=== PATIENT | male | born 1950 | race Caucasian/White ===

== ENCOUNTER 2023-08-16 14:22 | Inpatient (IN) | payer MEDICARE ==
[2023-08-16] MEDS ORDERED: PHENAZOPYRIDINE 200 MG TAB PO STA (15:08)
[2023-08-16] MEDS ORDERED: MORPHINE SULFATE 4 MG/ML SYRINGE IVP STA (15:08)
[2023-08-16 15:19] LABS: Basophils % (A) 0 %; Eosinophils # (A) 0.1 k/uL (0-0.7); Eosinophils % (A) 1 %; HCT 38.4 % (39.0-53.0); HGB 12.8 gm/dL (13.0-17.5); Lymphocytes # (A) 1.5 k/uL (1.0-4.8); Lymphocytes % (A) 11 %; MCH 30.2 pg (25.0-35.0); MCHC 33.4 g/dL (31.0-37.0); MCV 90.3 fL (80.0-100.0); Mean Platelet Volume 7.2; Monocytes # (A) 0.6 k/uL (0-1.0); Monocytes % (A) 4 %; Neutrophils % (A) 82 %; Platelet Count 213 k/uL (150-450); RBC 4.26 m/uL (4.30-5.90); RDW 13.8 % (11.5-15.5); WBC 13.3 k/uL (3.8-10.6)
[2023-08-16 15:28] LABS: ALT 15 U/L (4-49); AST 18 U/L (17-59); African American GFR (CKD) >90 (>60 ml/min/1.73 sqM); Albumin 3.7 g/dL (3.5-5.0); Alkaline Phosphatase 74 U/L (38-126); Anion Gap 8 mmol/L; Blood Urea Nitrogen 16 mg/dL (9-20); Calcium 8.7 mg/dL (8.4-10.2); Carbon Dioxide 28 mmol/L (22-30); Chloride 100 mmol/L (98-107); Glucose 93 mg/dL (74-99); Non-African American GFR(CKD) >90 (>60 ml/min/1.73 sqM); Potassium 4.2 mmol/L (3.5-5.1); Sodium 136 mmol/L (137-145); Total Bilirubin 0.9 mg/dL (0.2-1.3); Total Protein 6.7 g/dL (6.3-8.2)
[2023-08-16] MEDS ORDERED: ACETAMINOPHEN TAB 325 MG TAB PO PRN (16:19)
[2023-08-16] MEDS ORDERED: NALOXONE 0.4 MG/ML 1 ML VIAL IV PRN (16:19)
--- NOTE | 2023-08-16 16:19 | ED ---
Chest Pain HPI - General Chief Complaint: Chest Pain Stated Complaint: UTI, Chest Pain Time Seen by Provider: 08/16/23 14:40 Source: patient, EMS Mode of arrival: EMS Limitations: no limitations - History of Present Illness Initial Comments: 73-year-old man was into the emergency department as a transfer from [facility]. Patient went into their facility for chest pain which started last night. He describes it as a pressure sensation located over the left chest wall which radiates into the left arm and left jaw. He was also complaining of a fever and difficulty urinating. At [facility] he was found to have a negative troponin. His pain was improved with the nitro. He was found have a urinary tract infection was given Rocephin. Transferred to our facility for further cardiac workup. Patient continues to have left-sided chest wall pain which she grades as a 5 out of 10. Currently the patient has Nitropaste on. He denies any previous cardiac history but does have a large family history of cardiac issues. Denies history of previous urinary tract infections. No other alleviating, precipitating or modifying factors - Related Data Home Medications Medication Instructions Recorded Confirmed Desvenlafaxine Succinate 25 mg PO HS 08/16/23 08/16/23 [Desvenlafaxine Succinate ER] traZODone HCL [Desyrel] 200 mg PO HS PRN 08/16/23 08/16/23 Allergies Allergy/AdvReac Type Severity Reaction Status Date / Time No Known Allergies Allergy Verified 08/16/23 16:03 Review of Systems ROS Statement: Those systems with pertinent positive or pertinent negative responses have been documented in the HPI. ROS Other: All systems not noted in ROS Statement are negative. Past Medical History Past Medical History: No Reported History History of Any Multi-Drug Resistant Organisms: None Reported Past Surgical History: No Surgical Hx Reported Smoking Status: Never smoker Past Alcohol Use History: Occasional, Rare Past Drug Use History: None Reported General Exam Limitations: no limitations General appearance: alert, in no apparent distress Head exam: Present: atraumatic, normocephalic, normal inspection Eye exam: Present: normal appearance, PERRL, EOMI. Absent: scleral icterus, conjunctival injection, periorbital swelling ENT exam: Present: normal exam, mucous membranes moist Neck exam: Present: normal inspection. Absent: tenderness, meningismus, lymphadenopathy Respiratory exam: Present: normal lung sounds bilaterally. Absent: respiratory distress, wheezes, rales, rhonchi, stridor Cardiovascular Exam: Present: regular rate, normal rhythm, normal heart sounds. Absent: systolic murmur, diastolic murmur, rubs, gallop, clicks GI/Abdominal exam: Present: soft, normal bowel sounds. Absent: distended, tenderness, guarding, rebound, rigid Extremities exam: Present: normal inspection, full ROM, normal capillary refill. Absent: tenderness, pedal edema, joint swelling, calf tenderness Back exam: Present: normal inspection Neurological exam: Present: alert, oriented X3, CN II-XII intact Psychiatric exam: Present: normal affect, normal mood Skin exam: Present: warm, dry, intact, normal color. Absent: rash Course Vital Signs 08/16/23 08/16/23 14:32 16:05 Temperature 98 F Pulse Rate 65 65 Respiratory 18 18 Rate Blood Pressure 123/77 130/69 O2 Sat by Pulse 100 99 Oximetry Chest Pain MDM - MDM Was pt. sent in by a medical professional or institution (EAN Vargas, MAGNETOMETER OPERATOR, urgent care, hospital, or alf...) When possible be specific @ -Patient was sent in from [facility] Did you speak to anyone other than the patient for history (EMS, parent, family, police, friend...)? What history was obtained from this source @ -Spoke with transferring physician at outside hospital Did you review nursing and triage notes (agree or disagree)? Why? @ -I reviewed and agree with nursing and triage notes Were old charts reviewed (outside hosp., previous admission, EMS record, old EKG, old radiological studies, urgent care reports/EKG's, alf records)? Report findings @ -No old charts were reviewed Differential Diagnosis (chest pain, altered mental status, abdominal pain women, abdominal pain men, vaginal bleeding, weakness, fever, dyspnea, syncope, headache, dizziness, GI bleed, back pain, seizure, CVA, palpatations, mental health, musculoskeletal)? @ -Differential Fever: Pneumonia, viral URI, endocarditis, myocarditis, pericarditis, otitis, sinusitis, peritonsillar Abscess, retropharyngeal Abscess, epiglottitis, peritonitis, appendicitis, Nicole cystitis, diverticulitis, hepatitis, colitis, UTI, PID, TOA, pyelonephritis, prostatitis, epididymitis, meningitis, encephalitis, pulmonary embolism, CVA, thyroid storm, pancreatitis, adrenal crisis, cavernous sinus thrombosis, this is not meant to be an all-inclusive list. Differential Chest Pain: Stable Angina, Unstable Angina, STEMI, NSTEMI Aortic Dissection, Pneumothorax, Musculoskeletal, Esophageal Spasm GERD, Cholecystitis, Pancreatitis, Zoster, this is not meant to be an all-inclusive list. EKG interpreted by me (3pts min.). @ -Yes and demonstrates sinus rhythm with a rate of 66. WV interval 220. QRS 104. QTC 399. No acute ST segment elevations or depressions X-rays interpreted by me (1pt min.). @ -None done CT interpreted by me (1pt min.). @ -None done U/S interpreted by me (1pt. min.). @ -None done What testing was considered but not performed or refused? (CT, X-rays, U/S, labs)? Why? @ -None What meds were considered but not given or refused? Why? @ -None Did you discuss the management of the patient with other professionals (professionals i.e. , PA, MAGNETOMETER OPERATOR, lab, RT, psych nurse, director social service, ac/dc rewinder, teacher, youth liaison officer, case fitter)? Give summary @ -Spoke with Dr. Sanon for admission Was smoking cessation discussed for >3mins.? @ -No Was critical care preformed (if so, how long)? @ -No Were there social determinants of health that impacted care today? How? (Homelessness, low income, unemployed, alcoholism, drug addiction, transportation, low edu. Level, literacy, decrease access to med. care, retirement, rehab)? @ -No Was there de-escalation of care discussed even if they declined (Discuss DNR or withdrawal of care, Hospice)? DNR status @ -No What co-morbidities impacted this encounter? (DM, HTN, Smoking, COPD, CAD, Cancer, CVA, ARF, Chemo, Hep., AIDS, mental health diagnosis, sleep apnea, morbid obesity)? @ -None Was patient admitted / discharged? Hospital course, mention meds given and route, prescriptions, significant lab abnormalities, going to OR and other pertinent info. @ -Upon arrival patient was placed into room 25. I did review records from outside hospital. I repeated laboratory studies. Patient was given Pyridium. Spoke with Dr. Sanon who will admit patient Undiagnosed new problem with uncertain prognosis? @ -No Drug Therapy requiring intensive monitoring for toxicity (Heparin, Nitro, Insulin, Cardizem)? @ -No Were any procedures done? @ -No Diagnosis/symptom? @ -Acute pyrexia, acute UTI, acute chest pain Acute, or Chronic, or Acute on Chronic? @ -Acute Uncomplicated (without systemic symptoms) or Complicated (systemic symptoms)? @ -Complicated Side effects of treatment? @ -No Exacerbation, Progression, or Severe Exacerbation? @ -No Poses a threat to life or bodily function? How? (Chest pain, [place], [place], pneumonia, PE, COPD, DKA, ARF, appy, cholecystitis, CVA, Diverticulitis, Homicidal, Suicidal, threat to staff... and all critical care pts) @ -No Disposition Clinical Impression: Fever, Chest pain, UTI (urinary tract infection) Disposition: [facility]ITT[facility] Condition: Stable Is patient prescribed a controlled substance at d/c from ED?: No Time of Disposition: 16:18 Decision to Admit Reason: Admit from EC Decision Date: 08/16/23 Decision Time: 16:18
[2023-08-16] MEDS ORDERED: SODIUM CHLORIDE 0.9% 1,000 ML IV SCH (16:30)
[2023-08-16] MEDS ORDERED: traZODone HCL 100 MG TAB PO PRN (21:10)
[2023-08-16] MEDS ORDERED: LACTULOSE 20 GM/30 ML CUP PO PRN (21:10)
[2023-08-16] MEDS ORDERED: ALPRAZolam 0.25 MG TAB PO PRN (21:10)
[2023-08-16] MEDS ORDERED: MELATONIN 3 MG TABLET PO PRN (21:10)
[2023-08-16] MEDS ORDERED: ONDANSETRON 4 MG/2 ML VIAL IVP PRN (21:10)
[2023-08-16] MEDS ORDERED: CALCIUM CARBONATE 500 MG CHEWABLE PO PRN (21:10)
[2023-08-16] MEDS: DESVENLAFAXINE SUCCINATE 25 MG PO SCH (21:19)
[2023-08-16] MEDS: ENOXAPARIN 40 MG/0.4 ML SYRINGE SQ SCH (21:19)
--- NOTE | 2023-08-16 21:39 | P.HPIM ---
History of Present Illness H&P Date: 08/16/23 Chief Complaint: Fever This is a pleasant 73-year-old patient follows Dr. Catrachito Briceño. Otherwise, in good health. Patient was transferred here from [facility]. Patient started over the 103 at home. Developed burning dysuria and discomfort in the the pelvis. Patient does has to push to make urine to was the end of the urination. This is at baseline. He has been told he has a large prostate. He does also developed chest pain going across the chest. Going to the back and left shoulder. Also had some shortness of breath difficulty catching his breath. No perspiration. Urine came back and infected appearing. Started on antibiotics. Transferred down for further workup because of chest pain. Denies any prior cardiac history. Also felt dizzy. Review of systems: GEN.: Fevers EYES: None HEENT: None NECK: None RESPIRATORY: Some shortness of breath CARDIOVASCULAR: As above GASTROINTESTINAL: None GENITOURINARY: As above MUSCULOSKELETAL: None LYMPHATICS: None HEMATOLOGICAL: None PSYCHIATRY: None NEUROLOGICAL: Some trouble sleeping Past medical history to include: Insomnia, anxiety, BPH Social history: Patient is a repairer maintenance building. . No smoking or alcohol. Physical examination: VITAL SIGNS: T-max 103 at home, 65, 18, 123 with 77, 100% room air] GENERAL: BMI 25.8, laying in bed awake tired. EYES: Pupils equal. Conjunctiva normal. HEENT: External appearance of nose and ears normal, oral cavity grossly normal. NECK: JVD not raised; masses not palpable. HEART: First and second heart sounds are normal; no edema. LUNGS: Respiratory rate normal; clear to auscultation. ABDOMEN: Soft, nontender, liver spleen not palpable, no masses palpable. PSYCH: Alert and oriented x3; mood and affect normal. MUSCULOSKELETAL:No Clubbing/cyanosis;muscles-grossly intact NEUROLOGICAL: Cranial nerves grossly intact; no facial asymmetry, power and sensation grossly intact. LYMPHATICS: No lymph nodes palpable in the axilla and neck INVESTIGATIONS, reviewed in the clinical context: August 16: White count 13.3 hemoglobin 12.8 platelets 213 left shift sodium 136 potassium 4.2 BUN 16 creatinine 0.76 Troponin I less than 0.012 EKG tracing personally reviewed by me-normal sinus rhythm From [facility]: White count 14.4 left shift procalcitonin 0.11 UA: Nitrate positive, leukoesterase positive, WBC 30-50, bacteria 2+ Assessment and plan: -Acute UTI with cystitis causing sepsis. Patient speak to fever 103 at home. IV ceftriaxone 1 g every 12 Urine culture. Blood culture. -Sepsis secondary to acute UTI with cystitis IV ceftriaxone. IV fluids. -BPH Flomax 0.4 mg daily at bedtime -Anterior chest wall pain with radiation to the back in the left arm. Troponin negative. Telemetry. Consult cardiology- -Anxiety desvenlafaxine -Chronic insomnia Trazodone when necessary -Full code Care was discussed the patient. Questions answered. Given the complexity and severity of patient's condition expect the patient to be in the hospital at least for 2 overnights Past Medical History Past Medical History: No Reported History History of Any Multi-Drug Resistant Organisms: None Reported Past Surgical History: No Surgical Hx Reported Smoking Status: Never smoker Past Alcohol Use History: Occasional, Rare Past Drug Use History: None Reported Medications and Allergies Home Medications Medication Instructions Recorded Confirmed Type Desvenlafaxine Succinate 25 mg PO HS 08/16/23 08/16/23 History [Desvenlafaxine Succinate ER] traZODone HCL [Desyrel] 200 mg PO HS PRN 08/16/23 08/16/23 History Allergies Allergy/AdvReac Type Severity Reaction Status Date / Time No Known Allergies Allergy Verified 08/16/23 16:03 Physical Exam Vitals: Vital Signs Temp Pulse Pulse Resp BP BP Pulse Ox 08/16/23 20:00 98.3 F 79 16 109/54 96 08/16/23 17:15 98.0 F 76 16 143/73 97 08/16/23 16:05 65 18 130/69 99 08/16/23 14:32 98 F 65 18 123/77 100 Intake and Output 08/16/23 08/16/23 08/16/23 06:59 14:59 22:59 Intake Total 118 Balance 118 Intake: Oral 118 Other: Weight 79.379 kg 79.379 kg Results CBC & Chem 7: 08/16/23 15:10 08/16/23 15:10 Labs: Abnormal Lab Results - Last 24 Hours (Table) 08/16/23 08/16/23 Range/Units 15:10 15:10 WBC 13.3 H (3.8-10.6) k/uL RBC 4.26 L (4.30-5.90) m/uL Hgb 12.8 L (13.0-17.5) gm/dL Hct 38.4 L (39.0-53.0) % Neutrophils # 11.0 H (1.3-7.7) k/uL Sodium 136 L (137-145) mmol/L Thrombosis Risk Factor Assmnt - Choose All That Apply Any of the Below Risk Factors Present?: No Each Risk Factor Represents 2 Points: Age 61-74 years Thrombosis Risk Factor Assessment Total Risk Factor Score: 2 Thrombosis Risk Factor Assessment Level: Low Risk
[2023-08-16] MEDS: SODIUM CHLORIDE 0.9% 1,000 ML IV SCH (22:57)
[2023-08-16] MEDS: TAMSULOSIN 0.4 MG CAP.ER.24H PO SCH (22:58)
[2023-08-16 23:23] LABS: Amorphous Sediment,Urine Rare /hpf; Appearance,Urine Clear (Clear); Bacteria,Urine Rare /hpf; Bilirubin,Urine 1+ (Negative); Blood,Urine Negative (Negative); Color,Urine Dark Yellow; Glucose,Urine (UA) Negative (Negative); Ketones,Urine Negative (Negative); Leukocyte Esterase,Urine Trace (Negative); Mucus,Urine Rare /hpf; Nitrite,Urine Positive (Negative); Protein,Urine Negative (Negative); RBC,Urine 3 /hpf (0-5); Specific Gravity,Urine 1.018 (1.001-1.035); WBC,Urine 9 /hpf (0-5)
[2023-08-17 07:28] LABS: ALT 14 U/L (4-49); AST 18 U/L (17-59); African American GFR (CKD) >90 (>60 ml/min/1.73 sqM); Albumin 3.4 g/dL (3.5-5.0); Albumin/Globulin Ratio 1.2; Alkaline Phosphatase 76 U/L (38-126); Anion Gap 10 mmol/L; Blood Urea Nitrogen 15 mg/dL (9-20); Calcium 8.6 mg/dL (8.4-10.2); Carbon Dioxide 23 mmol/L (22-30); Chloride 102 mmol/L (98-107); Globulin 2.8 g/dL; Glucose 105 mg/dL (74-99); Non-African American GFR(CKD) 90 (>60 ml/min/1.73 sqM); Potassium 4.3 mmol/L (3.5-5.1); Sodium 135 mmol/L (137-145); Total Bilirubin 0.7 mg/dL (0.2-1.3); Total Protein 6.2 g/dL (6.3-8.2)
--- NOTE | 2023-08-17 08:10 | CA ---
Transthoracic Echo Report Name: Max Ansari Age: 73 Gender: M : 1950 Exam Date: 08/17/2023 07:19 Exam Location: [place] [facility] Ht (in): 69 Wt (lb): 175 Ordering Physician: Elgin Sanon MD Attending/Referring Phys: Commercial Sales Director Clarissa Silva [facility] Procedure CPT: Indications: Chest Pain Cardiac Hx: Technical Quality: Fair Contrast 1: Total Dose (mL): Contrast 2: Total Dose (mL): MEASUREMENTS (Male / Female) Normal Values 2D ECHO LV Diastolic Diameter PLAX 5.2 cm 4.2 - 5.9 / 3.9 - 5.3 cm LV Systolic Diameter PLAX 3.3 cm IVS Diastolic Thickness 0.9 cm 0.6 - 1.0 / 0.6 - 0.9 cm LVPW Diastolic Thickness 1.0 cm 0.6 - 1.0 / 0.6 - 0.9 cm LV Relative Wall Thickness 0.4 LVOT Diameter 2.0 cm Ascending Aorta Diameter 3.3 cm M-MODE Aortic Root Diameter MM 2.6 cm LA Systolic Diameter MM 3.0 cm LA Ao Ratio MM 1.2 AV Cusp Separation MM 2.2 cm DOPPLER AV Peak Velocity 146.2 cm/s AV Peak Gradient 8.5 mmHg AV Mean Velocity 85.9 cm/s AV Mean Gradient 3.6 mmHg AV Velocity Time Integral 26.2 cm LVOT Peak Velocity 109.2 cm/s LVOT Peak Gradient 4.8 mmHg LVOT Velocity Time Integral 23.5 cm LVOT Stroke Volume 72.4 cm??? LVOT Stroke Volume Index 37.1 ml/m??? LVOT Cardiac Index 2527.1 cm???/min???m??? AV Area Cont Eq vti 2.8 cm??? AV Area Cont Eq pk 2.3 cm??? Mitral E Point Velocity 78.5 cm/s Mitral A Point Velocity 85.9 cm/s Mitral E to A Ratio 0.9 MV Deceleration Time 192.3 ms LV E' Lateral Velocity 11.9 cm/s Mitral E to LV E' Lateral Ratio 6.6 LV E' Septal Velocity 8.1 cm/s Mitral E to LV E' Septal Ratio 9.7 TR Peak Velocity 169.3 cm/s TR Peak Gradient 11.5 mmHg Right Atrial Pressure 3.0 mmHg Pulmonary Artery Systolic Pressu 14.5 mmHg Right Ventricular Systolic Press 14.5 mmHg FINDINGS Left Ventricle Left ventricular wall thickness normal. Left ventricular cavity size normal. Low normal left ventricular systolic function with no obvious regional wall motion abnormalities. Left ventricular ejection fraction is estimated at 50- 55%. Right Ventricle Right ventricle at upper limits of normal. Right Atrium Upper normal right atrial size. Left Atrium Mild left atrial dilatation. Mitral Valve Structurally normal mitral valve. Trace to mild mitral regurgitation. Aortic Valve Trileaflet aortic valve. Thickening of the aortic valve cusps. No aortic valve stenosis or regurgitation. Tricuspid Valve Structurally normal tricuspid valve. Trace tricuspid regurgitation. Pulmonic Valve Pulmonic valve not well visualized. Pericardium No pericardial effusion. Aorta Normal size aortic root and proximal ascending aorta. CONCLUSIONS Normal LV size and systolic function. Ejection fractions in the 50-55% range. Left atrium is enlarged. Mild mitral and tricuspid regurgitation no pulmonary hypertension. No pericardial effusion Previewed by: Dr. Johnathan Marina MD (Electronically Signed) Final Date: 17 August 2023 08:09
--- NOTE | 2023-08-17 08:23 | XR ---
EXAMINATION TYPE: XR chest 2V DATE OF EXAM: 08/17/2023 6:52 AM COMPARISON: Chest radiographs from 08/16/2023 TECHNIQUE: XR chest 2V Frontal and lateral views of the chest. CLINICAL INDICATION:Male, 73 years old with history of Chest pain, short of breath; FINDINGS: Lungs/Pleura: There is flattening of the diaphragm with increased lucency of the lungs. No evidence o f pneumothorax, pleural effusion or focal consolidation. Chronic senescent parenchyma change. Pulmonary vascularity: Unremarkable. Heart/mediastinum: Cardiomediastinal silhouette is unremarkable. Musculoskeletal: No acute osseous pathology. IMPRESSION: 1. No acute cardiopulmonary disease process. 2. COPD changes.
--- NOTE | 2023-08-17 10:10 | P.CRDCN ---
History of Present Illness Consult date: 08/17/23 History of present illness: History of present illness: This is a 73-year-old male with no previous cardiac history and does not follow with a ethnic studies professor. He has no significant past medical history. We have been asked to evaluate the patient for chest pain. Patient initially presented to [facility]. Patient states that on Wednesday around 2 in the afternoon he developed severe pain with urination, no blood. He still states he has some burning with urination and pain but not as bad. By 8 PM he still was at rest and he developed pain on the left side of his chest that went around to his back and into the scapular area. He described it as knife and sharp. He now states it is a pressure type pain. He also had some shortness of breath. He states he has more pain with deep breathing and has been shallow breathing. At [facility] patient was started on Rocephin for urinary tract infection. His temperature was up to 103. Patient was complaining of dizziness this morning and nurses obtained orthostatics which were negative. At this time, patient does complain of some pressure in the left side of his chest and some left arm numbness. He has family history of a brother with ID at age 76 in father at age 84. EKG sinus rhythm at rate of 66, no ST changes Chest x-ray: Troponin negative 3, WBC 13.3, hemoglobin 12.8, platelet count 213. Sodium 135 otherwise electrolytes and renal function are normal. Blood sugar 105. Liver function tests are normal. Urinalysis done at our hospital not impressive for UTI. Home cardiac medications: None Review Of Systems: At the time of my evaluation: Constitutional: + fever, + chills. No weakness, fatigue or lethargy. EENT: No headache. No dizziness. Lungs: No shortness of breath, cough, no sputum production. No wheezing. Cardiovascular: Reports chest pain, no lower extremity edema. No palpitations. No paroxysmal nocturnal dyspnea. No orthopnea. No lightheadedness or dizziness. No syncopal episodes. Abdominal: No abdominal pain. No nausea, vomiting. No diarrhea. No constipation. No bloody or tarry stools. Genitourinary: Reports dysuria.. No urinary retention. Denies hematuria. Musculoskeletal: No myalgias. No muscle weakness, no frequent falls. Integumentary: No wounds. No rash. No unusual bruising. Neurologic: No aphasia. No facial droop. No change in mentation. Physical examination: Gen: This is a 73-year-old male resting in bed and appears to be comfortable and in no acute distress. VS: reviewed HEENT: Head is atraumatic, normocephalic. Pupils equal, round. Sclerae is anicteric. NECK: Supple. No JVD. . LUNGS: Clear to auscultation. No wheezes or rhonchi. No intercostal retractions. HEART: Regular rate and rhythm. No murmur. ABDOMEN: Soft No tenderness. EXTREMITIES: No pedal edema. No calf tenderness. NEUROLOGICAL: Patient is awake, alert and oriented x3. Assessment: Atypical chest pain Fever and leukocytosis Plan: No cardiac workup at this time. Once patient has recovered from sepsis, patient may follow-up in the office with Dr. Marina in about 2 weeks. Thank you kindly for this consultation. Nurse practitioner note has been reviewed, I agree with documented findings and plan of care. Patient was seen and examined. Past Medical History Past Medical History: No Reported History History of Any Multi-Drug Resistant Organisms: None Reported Past Surgical History: No Surgical Hx Reported Smoking Status: Never smoker Past Alcohol Use History: Occasional, Rare Past Drug Use History: None Reported Medications and Allergies Home Medications Medication Instructions Recorded Confirmed Type Desvenlafaxine Succinate 25 mg PO HS 08/16/23 08/16/23 History [Desvenlafaxine Succinate ER] traZODone HCL [Desyrel] 200 mg PO HS PRN 08/16/23 08/16/23 History Allergies Allergy/AdvReac Type Severity Reaction Status Date / Time No Known Allergies Allergy Verified 08/16/23 16:03 Physical Exam Vitals: Vital Signs Temp Pulse Pulse Resp BP BP Pulse Ox 08/17/23 02:00 98.4 F 73 16 127/64 96 08/16/23 20:00 98.3 F 79 16 109/54 96 08/16/23 17:15 98.0 F 76 16 143/73 97 08/16/23 16:05 65 18 130/69 99 08/16/23 14:32 98 F 65 18 123/77 100 Intake and Output 08/16/23 08/17/23 08/17/23 22:59 06:59 14:59 Intake Total 118 Balance 118 Intake: Oral 118 Other: Voiding Method Toilet Toilet # Voids 1 2 Weight 79.379 kg Results 08/16/23 15:10 08/17/23 06:28 Cardiac Enzymes 08/16/23 08/16/23 08/16/23 Range/Units 15:10 15:10 17:35 AST 18 (17-59) U/L Troponin I <0.012 <0.012 (0.000-0.034) ng/mL 08/16/23 08/17/23 Range/Units 21:15 06:28 AST 18 (17-59) U/L Troponin I <0.012 (0.000-0.034) ng/mL CBC 08/16/23 Range/Units 15:10 WBC 13.3 H (3.8-10.6) k/uL RBC 4.26 L (4.30-5.90) m/uL Hgb 12.8 L (13.0-17.5) gm/dL Hct 38.4 L (39.0-53.0) % Plt Count 213 (150-450) k/uL Comprehensive Metabolic Panel 08/16/23 08/17/23 Range/Units 15:10 06:28 Sodium 136 L 135 L (137-145) mmol/L Potassium 4.2 4.3 (3.5-5.1) mmol/L Chloride 100 102 (98-107) mmol/L Carbon Dioxide 28 23 (22-30) mmol/L BUN 16 15 (9-20) mg/dL Creatinine 0.76 0.78 (0.66-1.25) mg/dL Glucose 93 105 H (74-99) mg/dL Calcium 8.7 8.6 (8.4-10.2) mg/dL AST 18 18 (17-59) U/L ALT 15 14 (4-49) U/L Alkaline Phosphatase 74 76 (38-126) U/L Total Protein 6.7 6.2 L (6.3-8.2) g/dL Albumin 3.7 3.4 L (3.5-5.0) g/dL Current Medications Generic Name Dose Route Start Last Admin Trade Name Freq PRN Reason Stop Dose Admin Acetaminophen 650 mg 08/16/23 16:19 Acetaminophen Tab 325 Mg Tab PO Q6HR PRN Mild Pain or Fever > 100.5 Alprazolam 0.25 mg 08/16/23 21:10 Alprazolam 0.25 Mg Tab PO Q6HR PRN Anxiety Calcium Carbonate/Glycine 1,000 mg 08/16/23 21:10 Calcium Carbonate 500 Mg Chewable PO Q4HR PRN Dyspepsia Enoxaparin Sodium 40 mg 08/16/23 21:15 08/16/23 21:19 Enoxaparin 40 Mg/0.4 Ml Syringe SQ Not Given HS MELVIN Sodium Chloride 1,000 mls @ 130 mls/hr 08/16/23 21:30 08/16/23 22:57 Saline 0.9% IV 130 mls/hr .[id number] MELVIN Administration Ceftriaxone Sodium 1 gm/ 50 mls @ 100 mls/hr 08/16/23 22:00 08/16/23 22:58 Sodium Chloride IVPB 100 mls/hr Q24H MELVIN Administration Protocol Lactulose 20 gm 08/16/23 21:10 Lactulose 20 Gm/30 Ml Cup PO DAILY PRN Constipation Melatonin 3 mg 08/16/23 21:10 Melatonin 3 Mg Tablet PO HS PRN Insomnia Naloxone HCl 0.2 mg 08/16/23 16:19 Naloxone 0.4 Mg/Ml 1 Ml Vial IV Q2M PRN Opioid Reversal Patient's Own ( 25 mg 08/16/23 21:15 08/16/23 21:19 Desvenlafaxine PO Not Given Succinate [ HS [facility] Desvenlafaxine Succinate Er] 25 Mg Tablet) Ondansetron HCl 4 mg 08/16/23 21:10 Ondansetron 4 Mg/2 Ml Vial IVP Q8HR PRN Nausea And Vomiting Tamsulosin HCl 0.4 mg 08/16/23 21:45 08/16/23 22:58 Tamsulosin 0.4 Mg Cap.Er.24h PO 0.4 mg PC-SUPPER MELVIN Administration Trazodone HCl 200 mg 08/16/23 21:10 Trazodone Hcl 100 Mg Tab PO HS PRN sleep Intake and Output 08/16/23 08/17/23 08/17/23 22:59 06:59 14:59 Intake Total 118 Balance 118 Intake: Oral 118 Other: Voiding Method Toilet Toilet # Voids 1 2 Weight 79.379 kg 08/16/23 15:10 08/17/23 06:28
[2023-08-17] MEDS: SODIUM CHLORIDE 0.9% 1,000 ML IV SCH ×3 (10:32→18:05)
[2023-08-17 10:47] LABS: Basophils # (A) 0.04 X 10*3/uL (0.00-0.10); Basophils % (A) 0.4 %; Eosinophils # (A) 0.13 X 10*3/uL (0.04-0.35); Eosinophils % (A) 1.4 %; HCT 37.9 % (39.6-50.0); HGB 12.4 g/dL (13.0-17.0); Lymphocytes # (A) 0.82 X 10*3/uL (0.90-5.00); MCH 29.5 pg (27.0-32.0); MCHC 32.7 g/dL (32.0-37.0); Mean Platelet Volume 9.4 FL (9.5-12.2); Monocytes # (A) 0.66 X 10*3/uL (0.20-1.00); Monocytes % (A) 7.3 %; NRBC Per 100 WBC 0 X 10*3/uL (0.00-0.01); Neutrophils # (A) 7.41 X 10*3/uL (1.80-7.70); Neutrophils % (A) 81.8 %; Platelet Count 225 X 10*3/uL (140-440); RBC 4.21 X 10*6/uL (4.40-5.60); RDW 14.3 % (11.5-14.5); WBC 9.07 X 10*3/uL (4.50-10.00)
[2023-08-17] MEDS: TAMSULOSIN 0.4 MG CAP.ER.24H PO SCH (18:05)
--- NOTE | 2023-08-17 19:59 | P.PN ---
Progress Note - Text Progress Note Date: 08/17/23 Chief Complaint: Fever This is a pleasant 73-year-old patient follows Dr. Catrachito Briceño. Otherwise, in good health. Patient was transferred here from [facility]. Patient started over the 103 at home. Developed burning dysuria and discomfort in the the pelvis. Patient does has to push to make urine to was the end of the urination. This is at baseline. He has been told he has a large prostate. He does also developed chest pain going across the chest. Going to the back and left shoulder. Also had some shortness of breath difficulty catching his breath. No perspiration. Urine came back and infected appearing. Started on antibiotics. Transferred down for further workup because of chest pain. Denies any prior cardiac history. Also felt dizzy. August 17: Feeling much better. Eating better. Urine symptoms are improving. Urine cultures from the outside hospital/[place] pending. We will watch patient for another 24 hours. Active Medications Acetaminophen (Acetaminophen Tab 325 Mg Tab) 650 mg PO Q6HR PRN PRN Reason: Mild Pain or Fever > 100.5 Alprazolam (Alprazolam 0.25 Mg Tab) 0.25 mg PO Q6HR PRN PRN Reason: Anxiety Calcium Carbonate/Glycine (Calcium Carbonate 500 Mg Chewable) 1,000 mg PO Q4HR PRN PRN Reason: Dyspepsia Enoxaparin Sodium (Enoxaparin 40 Mg/0.4 Ml Syringe) 40 mg SQ HS [facility] Last Admin: 08/16/23 21:19 Dose: Not Given Sodium Chloride (Saline 0.9%) 1,000 mls @ 130 mls/hr IV .Q7H42M [facility] Last Admin: 08/17/23 18:05 Dose: 130 mls/hr Ceftriaxone Sodium 1 gm/ (Sodium Chloride) 50 mls @ 100 mls/hr IVPB Q24H [facility]; Protocol Last Admin: 08/16/23 22:58 Dose: 100 mls/hr Lactulose (Lactulose 20 Gm/30 Ml Cup) 20 gm PO DAILY PRN PRN Reason: Constipation Melatonin (Melatonin 3 Mg Tablet) 3 mg PO HS PRN PRN Reason: Insomnia Naloxone HCl (Naloxone 0.4 Mg/Ml 1 Ml Vial) 0.2 mg IV Q2M PRN PRN Reason: Opioid Reversal Patient's Own ( Desvenlafaxine Succinate [ Desvenlafaxine Succinate Er] 25 Mg Tablet) 25 mg PO HS [facility] Last Admin: 08/16/23 21:19 Dose: Not Given Ondansetron HCl (Ondansetron 4 Mg/2 Ml Vial) 4 mg IVP Q8HR PRN PRN Reason: Nausea And Vomiting Tamsulosin HCl (Tamsulosin 0.4 Mg Cap.Er.24h) 0.4 mg PO PC-SUPPER [facility] Last Admin: 08/17/23 18:05 Dose: 0.4 mg Trazodone HCl (Trazodone Hcl 100 Mg Tab) 200 mg PO HS PRN PRN Reason: sleep Past medical history to include: Insomnia, anxiety, BPH Social history: Patient is a building inspector. . No smoking or alcohol. Physical examination: VITAL SIGNS: 98.2, 76, 136/68, 97% room air GENERAL: Sitting edge of the bed, comfortable EYES: Pupils equal. Conjunctiva normal. HEENT: External appearance of nose and ears normal, oral cavity grossly normal. NECK: JVD not raised; masses not palpable. HEART: First and second heart sounds are normal; no edema. LUNGS: Respiratory rate normal; clear to auscultation. ABDOMEN: Soft, nontender, liver spleen not palpable, no masses palpable. PSYCH: Alert and oriented x3; mood and affect normal. MUSCULOSKELETAL:No Clubbing/cyanosis;muscles-grossly intact INVESTIGATIONS, reviewed in the clinical context: 2-D echocardiogram: EF 50-55%. August 17: White count 9.0 hemoglobin 12.4 platelets 225 potassium 4.3 creatinine 0.78 procalcitonin 0.12 August 16: White count 13.3 hemoglobin 12.8 platelets 213 left shift sodium 136 potassium 4.2 BUN 16 creatinine 0.76 Troponin I less than 0.012 EKG tracing personally reviewed by me-normal sinus rhythm From [facility]: White count 14.4 left shift procalcitonin 0.11 UA: Nitrate positive, leukoesterase positive, WBC 30-50, bacteria 2+ Assessment and plan: -Acute UTI with cystitis causing sepsis. Peaked fever 103 at home.: Improving IV ceftriaxone 1 g every 12 Urine culture. Blood culture.-Pending -Sepsis secondary to acute UTI with cystitis: Better IV ceftriaxone. IV fluids. -BPH Flomax 0.4 mg daily at bedtime -Anterior chest wall pain with radiation to the back in the left arm. Troponin negative. Telemetry. Seen by cardiology: To follow up outpatient. -Anxiety desvenlafaxine -Chronic insomnia Trazodone when necessary -Full code Cultures pending. If remains spelled and plan for discharge tomorrow. Discussed. Increase activity.
[2023-08-17] MEDS: ENOXAPARIN 40 MG/0.4 ML SYRINGE SQ SCH (20:17)
[2023-08-17] MEDS: DESVENLAFAXINE SUCCINATE 25 MG PO SCH (20:17)
[2023-08-17 23:01] VITALS: RESP 16
[2023-08-18 05:10] VITALS: TEMP 98.3
[2023-08-18] MEDS: SODIUM CHLORIDE 0.9% 1,000 ML IV SCH (05:47)
[2023-08-18 08:01] VITALS: BP 128/70; PULSE 65
--- NOTE | 2023-08-18 17:08 | P.DS ---
Providers Date of admission: 08/16/23 21:28 Expected date of discharge: 08/18/23 Attending physician: Elgin Sanon Consults: 08/16/23 16:19 Consult Physician Urgent Consulting Provider: [facility] Consult Reason/Comments: acute chest pain Do you want consulting provider notified?: Yes Primary care physician: Catrachito Briceño [facility] Course: Chief Complaint: Fever This is a pleasant 73-year-old patient follows Dr. Catrachito Briceño. Otherwise, in good health. Patient was transferred here from [facility]. Patient started over the 103 at home. Developed burning dysuria and discomfort in the the pelvis. Patient does has to push to make urine to was the end of the urination. This is at baseline. He has been told he has a large prostate. He does also developed chest pain going across the chest. Going to the back and left shoulder. Also had some shortness of breath difficulty catching his breath. No perspiration. Urine came back and infected appearing. Started on antibiotics. Transferred down for further workup because of chest pain. Denies any prior cardiac history. Also felt dizzy. August 17: Feeling much better. Eating better. Urine symptoms are improving. Urine cultures from the outside hospital/[place] pending. We will watch patient for another 24 hours. August 18: Doing much better. Urine symptoms have nearly resolved. We'll complete 7 more days of Ceftin. Making good urine. Patient follow-up with his PCP and also with urologist if needed. Questions answered. Discussion and discharge planning more than 35 minutes Past medical history to include: Insomnia, anxiety, BPH Social history: Patient is a superintendent building. . No smoking or alcohol. Physical examination: VITAL SIGNS: 98.3, 65, 16, 1 28 x 70, 96% room air GENERAL: Comfortable EYES: Pupils equal. Conjunctiva normal. HEENT: External appearance of nose and ears normal, oral cavity grossly normal. NECK: JVD not raised; masses not palpable. HEART: First and second heart sounds are normal; no edema. LUNGS: Respiratory rate normal; clear to auscultation. ABDOMEN: Soft, nontender, liver spleen not palpable, no masses palpable. PSYCH: Alert and oriented x3; mood and affect normal. MUSCULOSKELETAL:No Clubbing/cyanosis;muscles-grossly intact INVESTIGATIONS, reviewed in the clinical context: 2-D echocardiogram: EF 50-55%. August 17: White count 9.0 hemoglobin 12.4 platelets 225 potassium 4.3 creatinine 0.78 procalcitonin 0.12 August 16: White count 13.3 hemoglobin 12.8 platelets 213 left shift sodium 136 potassium 4.2 BUN 16 creatinine 0.76 Troponin I less than 0.012 EKG tracing personally reviewed by me-normal sinus rhythm From [facility]: White count 14.4 left shift procalcitonin 0.11 UA: Nitrate positive, leukoesterase positive, WBC 30-50, bacteria 2+ Assessment and plan: -Acute UTI with cystitis causing sepsis. Peaked fever 103 at home.: Improved IV ceftriaxone 1 g every 12 Discharge on Ceftin 250 mg twice a day for 7 days -Sepsis secondary to acute UTI with cystitis: Improved IV ceftriaxone. IV fluids. -BPH Flomax 0.4 mg daily at bedtime -Anterior chest wall pain with radiation to the back in the left arm. Troponin negative. Telemetry. Seen by cardiology: To follow up outpatient. -Anxiety desvenlafaxine -Chronic insomnia Trazodone when necessary -Full code Disposition: Home Plan - Discharge Summary Discharge Rx Participant: No New Discharge Prescriptions: New Cefuroxime [Ceftin] 250 mg PO BID #14 tab Tamsulosin [Flomax] 0.4 mg PO PC-SUPPER #30 cap Continue traZODone HCL [Desyrel] 200 mg PO HS PRN PRN Reason: sleep Desvenlafaxine Succinate [Desvenlafaxine Succinate ER] 25 mg PO HS Discharge Medication List Desvenlafaxine Succinate [Desvenlafaxine Succinate ER] 25 mg PO HS 08/16/23 [History] traZODone HCL [Desyrel] 200 mg PO HS PRN 08/16/23 [History] Cefuroxime [Ceftin] 250 mg PO BID #14 tab 08/18/23 [Rx] Tamsulosin [Flomax] 0.4 mg PO PC-SUPPER #30 cap 08/18/23 [Rx] Follow up Appointment(s)/Referral(s): Johnathan Marina MD [STAFF PHYSICIAN] - 09/01/23 3:30 pm Catrachito Briceño MD [Primary Care Provider] - 1-2 days Patient Instructions/Handouts: Urinary Tract Infection in Men (DC)
== END 2023-08-18 14:10 | disposition home or self-care (01) | DRG 872 ==
LOC: EC 14:22 → 6NMEDSUR 16:19 → OBSVTOIN 21:28
PROVIDERS: ADMIT Hospitalist; ATTEND Hospitalist
DX: A41.9 Sepsis, unspecified organism (principal); N30.90 Cystitis, unspecified without hematuria; F41.9 Anxiety disorder, unspecified; R07.89 Other chest pain; I08.1 Rheumatic disorders of both mitral and tricuspid valves; M79.622 Pain in left upper arm; N40.0 Benign prostatic hyperplasia without lower urinary tract symptoms; F51.04 Psychophysiologic insomnia; Z79.899 Other long term (current) drug therapy; Z82.49 Family history of ischemic heart disease and other diseases of the circulatory system
CPT/HCPCS: 36415; 71046; 80053; 81001; 84145; 84484; 85025; 87040; 93005; 93306

== ENCOUNTER → 2023-10-06 | Outpatient (CLI) | payer MEDICARE ==
--- NOTE | 2023-10-06 09:00 | MR ---
EXAMINATION TYPE: MR brain wo con DATE OF EXAM: 10/06/2023 COMPARISON: NONE HISTORY: Multiple sclerosis TECHNIQUE: Multiplanar, multisequence imaging of the brain and brainstem is performed without IV cont rast. FINDINGS: Diffusion weighted images demonstrate no evidence of a recent infarct or other diffusion abnormality. There is hdgx-cj-alnizoed ventricular and sulcal prominence. Some T2 hyperintensity is seen in the pe riventricular white matter. There is occasional tiny focus of T2 hyperintensity in the deep white mat ter. For reference there is a 5 x 2 x 3 mm left-sided deep parietal lesion axial image 19 and sagitta l image 85 noted. Midline structures demonstrate normal morphology. The craniocervical junction appears within normal limits. Normal vascular flow voids are present. Mild to moderate mucosal thickening involving bilater al maxillary sinuses right greater than left. Moderate to severe mucosal thickening involving anterio r ethmoid sinuses bilaterally is present. The globes are intact bilaterally. IMPRESSION: 1. Mild to moderate diffuse cerebral atrophy and mild nonspecific white matter changes favor product of chronic small vessel ischemic change in patient of this age. 2. Chronic paranasal sinus disease is noted as detailed above.
--- NOTE | 2023-10-06 09:41 | MR ---
EXAMINATION TYPE: MR angio head wo/neck wo/w con DATE OF EXAM: 10/06/2023 9:03 AM CLINICAL INDICATION:Male, 73 years old with history of G35 MULTIPLE SCLEROSIS; [facility], COMPARISON: 10/06/2022. Technical: MRA brain: 2D and 3-D [id number] Axial with MIP and 3-D reconstruction. Performed on a separate w orkstation. MRA neck: Multiplanar, multi-sequence imaging as well as [id number] and phase was performed extra cranial vasculature of the neck. 3-D reformatted images and maximum intensity projection reformatted images were submitted for evaluation, these are performed on a separate workstation. IV Contrast: 8 mm Gadavist Findings: Vertebral arteries: The vertebral arteries are patent. Vertebral arteries are: Codominant. Basilar artery: The basilar artery is intact. The basilar artery bifurcation is normal. Internal Carotid arteries: The cervical, petrous, cavernous and supraclinoid segments are normal. ANNALISE: Patent with no evidence of aneurysm. ACOM: Present without evidence of aneurysm. MCA: Patent with no evidence of aneurysm. MAINTENANCE MAN: Patent with no evidence of aneurysm. PCOM: Hypoplastic bilaterally. RIGHT CAROTID SYSTEM: The common carotid artery is patent. The carotid bifurcations demonstrates no e vidence for hemodynamically significant stenosis. The internal carotid artery is patent. LEFT CAROTID SYSTEM: The common carotid artery is patent. The carotid bifurcations demonstrates no e vidence for hemodynamically significant stenosis. The internal carotid artery is patent. The origins of the great vessels and vertebral arteries appear unremarkable. The codominant vertebra l artery system. Paranasal sinus disease. IMPRESSION: 1. No evidence of intracranial aneurysm or significant stenosis. 2. No evidence of significant stenosis at the carotid bifurcations. The carotid and vertebral arteri es are patent. 3. No evidence aneurysm.
== END | disposition home or self-care (01) ==
LOC: RADMRIMAIN 07:45
PROVIDERS: ATTEND Psychiatry & Neurology Neurology
DX: G93.89 Other specified disorders of brain (principal); G31.9 Degenerative disease of nervous system, unspecified; G35 Multiple sclerosis; J34.89 Other specified disorders of nose and nasal sinuses
CPT/HCPCS: 70544; 70549; 70551; A9585

== ENCOUNTER → 2024-02-01 | Outpatient (CLI) | payer MEDICARE ==
--- NOTE | 2024-02-01 12:57 | FL ---
EXAMINATION TYPE: FL UGI DATE OF EXAM: 02/01/2024 COMPARISON: None HISTORY: Epigastric pain gastroesophageal reflux TECHNIQUE: A double air contrast UGI study is performed. Fluoroscopy time 1 minute 54 seconds Images: 163 DAP: 5107.44 FINDINGS: Contrast passes from the distal esophagus through the gastric sleeve with no significant he sitancy. No large hiatal hernia is identified. Minimal self reducing sliding type hiatal hernia may b e present. Note is made of multiple episodes of gastroesophageal reflux during the examination some e xtending to the level of the clavicles. Some mild presbyesophagus is present with tertiary contractio ns. There is incomplete stripping of esophageal bolus in the horizontal drinking position. Fundus body and antrum of the stomach as visualized are normal. No intraluminal or extramural defects is evident. Barium readily empties into a normally positioned duodenal cap and sweep. Duodenal folds appear normal. Proximal jejunal fold pattern appears normal. Overhead radiographs were obtained which are unremarkable. IMPRESSION: 1. Gastroesophageal reflux extending to the clavicles. 2. Minimal sliding type hiatal hernia may be present. 3. Presbyesophagus. 4. Stomach and duodenum, and proximal jejunum appear unremarkable.
== END | disposition home or self-care (01) ==
LOC: RADUSWWP 09:51
PROVIDERS: ATTEND Internal Medicine
DX: R10.13 Epigastric pain (principal)
CPT/HCPCS: 74240

== ENCOUNTER 2024-11-23 08:51 | Day surgery (SDC) | payer MEDICARE ==
[~2024-11-23 08:51] MED LIST: ALPRAZolam 0.25 MG TAB PO PRN; ALPRAZolam 0.5 MG TAB PO PRN
[2024-11-23] MEDS: SODIUM CHLORIDE 0.9% 1,000 ML in EMPTY BAG 1 BAG IV SCH ×2 (09:50→13:30)
[2024-11-23] MEDS: ASPIRIN 325 MG TAB PO STA (09:50)
[2024-11-23] MEDS: IV FLUID CONTINUATION 1,000 ML IV ONE (09:53)
[2024-11-23] MEDS: HEPARIN SODIUM,PORCINE (1 ML) 2,500 UNIT in SODIUM CHLORIDE 0.9% 250 ML IRRIGATION PRN (10:38)
[2024-11-23] MEDS: HEPARIN SODIUM,PORCINE 10,000 UNIT in SODIUM CHLORIDE 0.9% 1,000 ML IRRIGATION PRN (10:38)
[2024-11-23] MEDS: LIDOCAINE 1% INJ 10MG/ML (20 ML MDV) SQ ONE (10:44)
[2024-11-23] MEDS: MIDAZOLAM 2 MG/2 ML VIAL IVP ONE (10:44)
[2024-11-23] MEDS: VERAPAMIL SYRINGE (5 MG/10 ML) INTRAARTER ONE (10:52)
[2024-11-23] MEDS: HEPARIN SODIUM 1,000 UN/ML (10ML VL) IVP ONE (11:10)
[2024-11-23] MEDS: IOPAMIDOL-370 100ML BTL INJ ONE ×2 (11:27→11:50)
[2024-11-23] MEDS: NITROGLYCERIN 1000MCG/10ML SYRINGE INTRACORON ONE (11:39)
[2024-11-23] MEDS: CLOPIDOGREL 75 MG TAB PO ONE (11:52)
[2024-11-23] MEDS ORDERED: ATROPINE SULFATE 0.1 MG/ML 10ML SYRINGE IV PRN (11:58)
[2024-11-23] MEDS ORDERED: MAG HYDROX/AL HYDROX/SIMETH 30 ML CUP PO PRN (11:58)
[2024-11-23] MEDS ORDERED: RX INFO: IV CONTRAST WAS GIVEN 1 EACH MISC MISCELLANE PRN (11:58)
[2024-11-23] MEDS ORDERED: ZOLPIDEM 5 MG TAB PO PRN (11:58)
--- NOTE | 2024-11-23 12:49 | CC ---
CARDIAC CATHETERIZATION REPORT PROCEDURES PERFORMED: 1. Left heart catheterization and coronary angiography. 2. Percutaneous transluminal coronary angioplasty and stenting of posterior descending artery branch of a dominant right coronary artery with a drug-eluting stent. PERFORMED BY: Dr. Vernon Marina. ANESTHESIA: Moderate conscious sedation time was 64 minutes. The patient was administered Versed. Oxygen saturation, hemodynamics, and EKG were monitored closely. This procedure was performed on November 23, 2024. CLINICAL INFORMATION: Mr. Ansari is a 74-year-old gentleman with history of hypertension, hyperlipidemia, family history of premature CAD, who had an abnormal stress test with inferobasal hypokinesia on the echo as well as anteroapical predominantly fixed defect. He has symptoms of chest tightness and pressure. He has strong family history of CAD, hypertension, hyperlipidemia. Because of these abnormal stress test after optimal medications, I brought him in for elective coronary angiogram and PCI if necessary. PROCEDURE NOTE: Under strict aseptic precautions and local anesthesia with the help of ultrasound guidance, access was obtained into the right radial artery. A 6-[place] introducer was placed. There was a lot of tortuosity in his radial arteries. However, we were able to get past as tortuosity in the cubital fossa area and went all the way up into the ascending aorta. Pressures of the left ventricle were obtained with the right coronary catheter. The right Ana catheter was 4.0 curve and the left Ana catheter was 3.5 curve. Diagnostic coronary angiography was performed and pressures in the LV were checked with the right catheter but LV gram was not performed. Following this, I performed intervention of the PDA branch of RCA. Following the procedure, the sheath was taken out and a TR band applied as per protocol with saturation of the fingers of the right hand of 98%. The patient was given 600 mg of Plavix and he will be on aspirin and Plavix without interruption for 1 year. CARDIAC CATHETERIZATION FINDINGS: Right coronary artery: Dominant vessel. No significant disease distally. There is mild calcification, bifurcates into PDA and PLV. The PDA and PLV are of fair caliber and distribution. The PDA branch has area of 95% stenosis in the midportion, beyond which there is a fair amount of myocardium being supplied by it. Left main coronary artery: Short patent disease-free vessel that bifurcates into LAD and circumflex. No significant disease in the left main. Left anterior descending coronary artery: Good caliber vessel, extends along the anterior wall, gives off septal and diagonal branches. There is a very proximal diagonal branch that is totally occluded and seen to fill late. This is probably what shows up on the stress test in the anteroapical region. There is a total occlusion of the 1st diagonal branch, fair caliber that fills late with probably some contralateral collaterals. The LAD itself has minor irregularities. No significant disease and supplies a fair amount of myocardium. There are minor irregularities seen throughout. The mid LAD has about a 30% to 40% narrowing. It curves over the apex to supply the inferoapical portion of left ventricle. So for the LAD, the 1st diagonal branch of fair caliber is occluded. It is about a 1.75 mm vessel that fills late, but does not supply a lot of myocardium. Left posterior circumflex coronary artery: Technically a nondominant vessel, fair caliber and distribution, gives off a good-sized obtuse marginal and secondary branches, has minor irregularities, no significant disease. The left ventricular end-diastolic pressure was about 12 mmHg without any gradient across the aortic valve. FINAL IMPRESSION: This patient has a right dominant system, 95% stenosis involving the PDA branch of RCA. Left main and circumflex are free of significant disease. LAD has no significant disease except first diagonal is totally occluded and fills late and is of a fair caliber and limited distribution. The filling pressures are normal. There is no gradient across the aortic valve. RECOMMENDATIONS: I recommended PCI of the PDA branch of RCA. With regard to the diagonal branch, I believe continued medical therapy is the best approach. This is a chronic total occlusion and the caliber of the diagonal is not large and distribution is also limited. PCI PROCEDURE DETAILS: I used a [facility] guide catheter to cannulate the right coronary artery and a run-through wire to cross the lesion. A 2.25 caliber NC Trek balloon of 15 mm length was used to pre-dilate the lesion and the same 2.25 caliber Xience stent was deployed at 13 atmospheres. No significant EKG changes. The patient received a total of 6500 units of heparin, but his ACT was over 300. He received 600 mg of Plavix. He will be on aspirin and Plavix without interruption for 1 year. Excellent angiographic result without complication was achieved. MMODL / IJN: [id number] /
[2024-11-23] MEDS: TAMSULOSIN 0.4 MG CAP.ER.24H PO SCH (18:37)
[2024-11-23] MEDS: ATORVASTATIN 80 MG TAB PO SCH (19:43)
[2024-11-23] MEDS: LOSARTAN 25 MG TAB PO SCH (19:43)
[2024-11-23] MEDS: PROPRANOLOL 20 MG TAB PO SCH (19:43)
[2024-11-24 05:48] LABS: Basophils % (A) 1 %; Eosinophils # (A) 0.2 k/uL (0-0.7); Eosinophils % (A) 3 %; HCT 41.3 % (39.0-53.0); HGB 13.3 gm/dL (13.0-17.5); Lymphocytes # (A) 1.4 k/uL (1.0-4.8); Lymphocytes % (A) 22 %; MCH 29.5 pg (25.0-35.0); MCHC 32.3 g/dL (31.0-37.0); MCV 91.5 fL (80.0-100.0); Mean Platelet Volume 6.6; Monocytes # (A) 0.4 k/uL (0-1.0); Monocytes % (A) 7 %; Neutrophils % (A) 64 %; Platelet Count 217 k/uL (150-450); RBC 4.52 m/uL (4.30-5.90); RDW 13.2 % (11.5-15.5); WBC 6.2 k/uL (3.8-10.6)
[2024-11-24 05:58] LABS: African American GFR (CKD) >90 (>60 ml/min/1.73 sqM); Anion Gap 6 mmol/L; Blood Urea Nitrogen 12 mg/dL (9-20); Calcium 8.8 mg/dL (8.4-10.2); Carbon Dioxide 28 mmol/L (22-30); Chloride 103 mmol/L (98-107); Glucose 103 mg/dL (74-99); Non-African American GFR(CKD) 85 (>60 ml/min/1.73 sqM); Potassium 4.1 mmol/L (3.5-5.1); Sodium 137 mmol/L (137-145)
[2024-11-24] MEDS: CLOPIDOGREL 75 MG TAB PO SCH (08:30)
[2024-11-24] MEDS: ASPIRIN 81 MG PO SCH (08:30)
[2024-11-24] MEDS: NITROGLYCERIN SL TABS 0.4 MG TAB SUBLINGUAL PRN (11:29)
[2024-11-24] MEDS: DESVENLAFAXINE SUCCINATE 50 MG TAB.ER.24H PO SCH (11:29)
--- NOTE | 2024-11-24 11:42 | XR ---
EXAMINATION TYPE: XR chest 1V portable DATE OF EXAM: 11/24/2024 11:33 AM COMPARISON: Chest radiographs from 08/17/23 TECHNIQUE: XR chest 1V portable Portable AP radiograph of the chest. CLINICAL INDICATION:Male, 74 years old with history of post cath, left sided chest pain; FINDINGS: Lungs/Pleura: Hyperinflation. No evidence of pneumothorax, pleural effusion or focal consolidation. C hronic senescent parenchyma change. Pulmonary vascularity: Unremarkable. Heart/mediastinum: Cardiomediastinal silhouette is unremarkable. Musculoskeletal: No acute osseous pathology. IMPRESSION: 1. No acute cardiopulmonary disease process. 2. COPD changes. [facility], , 11/24/2024 11:40 AM
[2024-11-24 14:39] VITALS: BMI 27.0
--- NOTE | 2024-11-24 21:01 | CA ---
Transthoracic Echo Report Name: Max Ansari Age: 74 Gender: M : 1950 Exam Date: 11/24/2024 16:51 Exam Location: [facility] Ht (in): 70 Wt (lb): 188 Ordering Physician: Simin Messer Attending/Referring Phys: [id number], Gui Shingler Hansa Womack, EVIE Procedure CPT: Indications: pericardial effusion Cardiac Hx: Technical Quality: Fair Contrast 1: Definity Total Dose (mL): 2 Contrast 2: Total Dose (mL): MEASUREMENTS (Male / Female) Normal Values 2D ECHO LV Diastolic Diameter PLAX 4.9 cm 4.2 - 5.9 / 3.9 - 5.3 cm LV Systolic Diameter PLAX 3.8 cm IVS Diastolic Thickness 1.0 cm 0.6 - 1.0 / 0.6 - 0.9 cm LVPW Diastolic Thickness 1.1 cm 0.6 - 1.0 / 0.6 - 0.9 cm LV Relative Wall Thickness 0.4 RV Internal Dim ED PLAX 2.1 cm LA Systolic Diameter LX 3.8 cm 3.0 - 4.0 / 2.7 - 3.8 cm M-MODE Aortic Root Diameter MM 3.1 cm LA Systolic Diameter MM 2.9 cm LA Ao Ratio MM 0.9 AV Cusp Separation MM 2.1 cm FINDINGS Left Ventricle Left ventricular ejection fraction is estimated at 40-45%. Left ventricular cavity size normal. Left ventricular wall thickness normal. Mildly reduced global left ventricular systolic function. Right Ventricle Normal right ventricular size and function. Right Atrium Normal right atrial size. Left Atrium Normal left atrial size. Mitral Valve Structurally normal mitral valve. Aortic Valve Tricuspid Valve Pulmonic Valve Pericardium No pericardial or pleural effusion. Aorta Normal size aortic root and proximal ascending aorta. CONCLUSIONS Limited study Mildly impaired LV function with EF between 40 to 45% No pericardial effusion Previewed by: Dr. Oli Sanches MD (Electronically Signed) Final Date: 24 November 2024 21:00
[2024-11-24] MEDS: traZODone HCL 100 MG TAB PO PRN (23:19)
[2024-11-25 07:58] VITALS: BP 114/60; PULSE 59; RESP 18; TEMP 97.6
--- NOTE | 2024-11-25 14:44 | P.DS ---
Providers Date of admission: 11/23/2024 Expected date of discharge: 11/25/24 Attending physician: Johnathan Marina Consults: 11/23/24 11:58 Consult Physician Routine Consulting Provider: [facility] Consult Reason/Comments: Post Interventional patient Do you want consulting provider notified?: Already Contacted Primary care physician: Catrachito Briceño [facility] Course: This is a pleasant 74-year-old gentleman who follows with Dr. Marina. He has a history of hypertension, hyperlipidemia, family history of CAD who had been having exertional shortness of breath and mild chest discomfort underwent stress test that came back to be abnormal. He came in on 11/23/2024 and underwent cardiac catheterization. 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 He subsequently underwent stenting of the PDA. That evening he developed some chest discomfort and subsequently underwent echocardiogram yesterday which showed an EF of 40 to 45% with no pericardial effusion. He again developed some chest discomfort around 8 PM last night that was intermittent for about an hour and a half described as a heaviness. He denies symptoms that remind him of what he was feeling prior to his PCI. He denies any shortness of breath. PHYSICAL EXAMINATION: HEENT: Head is atraumatic, normocephalic. Pupils equal, round. Neck is supple. There is no elevated jugular venous pressure. HEART EXAMINATION: Heart sounds regular, S1 and S2 normal. No murmur or gallop heard. CHEST EXAMINATION: Lungs are clear to auscultation and precussion. No chest wall tenderness is noted on palpation or with deep breathing. ABDOMEN: Soft, nontender. Bowel sounds are heard. No organomegaly noted. EXTREMITIES: 2+ peripheral pulses with no evidence of peripheral edema and no calf tenderness noted. Right radial puncture site soft without ecchymosis or hematoma NEUROLOGIC patient is awake, alert and oriented x3. Assessment 1 CAD status post stenting of the PDA 2 ischemic cardiomyopathy ejection fraction 40 to 45% 3 hypertension 4 hyperlipidemia Plan From cardiology's perspective patient may be discharged home. He will follow-up with Dr. Marina in the office in about a week. [facility] EDUCATIONAL AIDE note has been reviewed, I agree with a documented findings and plan of care. Patient was seen and examined. Plan - Discharge Summary Discharge Rx Participant: No New Discharge Prescriptions: New Nitroglycerin Sl Tabs [Nitrostat] 0.4 mg SUBLINGUAL Q5M PRN #25 tab PRN Reason: Chest Pain Clopidogrel [Plavix] 75 mg PO DAILY #90 tab Continue Losartan [Cozaar] 25 mg PO HS Atorvastatin [Lipitor] 40 mg PO HS Aspirin 81 mg PO DAILY traZODone HCL [Desyrel] 200 mg PO HS PRN PRN Reason: sleep Desvenlafaxine Succinate [Desvenlafaxine Succinate ER] 50 mg PO DAILY Tamsulosin [Flomax] 0.4 mg PO PC-SUPPER #30 cap Propranolol [Inderal] 20 mg PO BID Discharge Medication List Desvenlafaxine Succinate [Desvenlafaxine Succinate ER] 50 mg PO DAILY 08/16/23 [History] traZODone HCL [Desyrel] 200 mg PO HS PRN 08/16/23 [History] Tamsulosin [Flomax] 0.4 mg PO PC-SUPPER #30 cap 08/18/23 [Rx] Aspirin 81 mg PO DAILY 11/22/24 [History] Atorvastatin [Lipitor] 40 mg PO HS 11/22/24 [History] Losartan [Cozaar] 25 mg PO HS 11/22/24 [History] Propranolol [Inderal] 20 mg PO BID 11/22/24 [History] Clopidogrel [Plavix] 75 mg PO DAILY #90 tab 11/24/24 [Rx] Nitroglycerin Sl Tabs [Nitrostat] 0.4 mg SUBLINGUAL Q5M PRN #25 tab 11/24/24 [Rx] Follow up Appointment(s)/Referral(s): Johnathan Marina MD [STAFF PHYSICIAN] - 11/28/24 9:00 am (FOLLOW UP APPOINTMENT MADE. ) Patient Instructions/Handouts: Moderate Sedation (DC), Coronary Intravascular Stent Placement (DC), After Radial Heart Catheterization (GEN), Left Heart Catheterization (DC) Activity/Diet/Wound Care/Special Instructions: RETURN TO ER FOR WORSENING SYMPTOMS, PROBLEMS, OR CONCERNS. NO FLEXING AT THE WRIST OR LIFTING ANYTHING HEAVIER THAN 5 POUNDS FOR 5 DAYS REMOVE DRESSING NAEEM PUNCTURE SITE IN 24 HOURS AND LEAVE OPEN TO AIR DO NOT SUBMERGE WRIST IN WATER FOR 3 DAYS IF SITE BLEEDS, HOLD PRESSURE FOR 10 MIN AND IF IT DOESN'T SUBSIDE THEN HAVE SOMEONE DRIVE YOU TO ER OR CALL EMS. WATCH FOR COLOR CHANGES, COOLNESS, PALLOR NUMBNESS OR TINGLING TO RIGHT EXTREMITY AND COME TO ER FOR ANY OF THESE SYMPTOMS.
== END 2024-11-25 15:28 | disposition home or self-care (01) ==
LOC: CATHCVL 08:51 → 6NMEDSUR 11:45 → CATHCVL 11-25 15:28
PROVIDERS: ATTEND Internal Medicine Interventional Cardiology
DX: I25.10 Atherosclerotic heart disease of native coronary artery without angina pectoris (principal); E78.5 Hyperlipidemia, unspecified; I10 Essential (primary) hypertension; I25.5 Ischemic cardiomyopathy; I25.82 Chronic total occlusion of coronary artery; I31.39 Other pericardial effusion (noninflammatory); J44.9 Chronic obstructive pulmonary disease, unspecified; Z79.02 Long term (current) use of antithrombotics/antiplatelets; Z79.82 Long term (current) use of aspirin; Z79.899 Other long term (current) drug therapy
CPT/HCPCS: 93458; 80048; 85025; 71045; 99152; 99153; C8924; C9600; C1769 ×4; C1887; C1894; C1874; C1725; J2250; J1644 ×3; J2003; Q9957; Q9967; J2305; 93308